=== PATIENT | male | born 1950 | race Caucasian/White ===

== ENCOUNTER 2021-04-01 09:57 | Emergency (ER) | payer MEDICARE ==
[~2021-04-01] VITALS: Ht 185.4 cm; Wt 117.9 kg
[2021-04-01] MEDS ORDERED: HYDROCODONE/APAP 5MG-325MG TAB PO ONE (10:30)
[2021-04-01] MEDS ORDERED: IBUPROFEN600 MG PO (10:34)
[2021-04-01] MEDS ORDERED: ONDANSETRON ODT4 MG PO (10:39)
[2021-04-01] MEDS ORDERED: PEPCID20 MG PO (10:39)
[2021-04-01] MEDS ORDERED: HYDROCODONE/APAP 5MG-325MG TAB ONE (10:44)
== END 2021-04-01 10:41 | disposition home or self-care (01) ==
LOC: ER 10:29
DX: E11.621 Type 2 diabetes mellitus with foot ulcer (principal); L97.529 Non-pressure chronic ulcer of other part of left foot with unspecified severity; M79.672 Pain in left foot; Z85.828 Personal history of other malignant neoplasm of skin
CPT/HCPCS: 99283